=== PATIENT | male | born 1960 | race Caucasian/White ===

== ENCOUNTER 2023-05-31 09:00 | Emergency (ER) | payer SELFPAY ==
[2023-05-31 09:04] VITALS: BP 169/109; PULSE 96; RESP 20; TEMP 36.6; O2SAT 97; BMI 23.6
[2023-05-31] MEDS: FLUORESCEIN SODIUM 1 MG STRIP OP (09:30)
[2023-05-31] MEDS: TETRACAINE HCL 0.5% OP SOL 80 DROP/4 ML BOTTLE OP (09:30)
--- NOTE | 2023-05-31 09:42 | ED_ITS ---
HPI - Eye Problem General Chief complaint: Eye Problems Stated complaint: FOREIGN BODY IN EYE Time Seen by Provider: 05/31/23 09:42 Source: patient Mode of arrival: walk-in History of Present Illness HPI Narrative: Kacie hodge complaint of possible foreign body in his left eye. He said he was working on some home project yesterday using a tile cutter saw. He was cutting both wood and metal. He was wearing safety glasses. He did not have a foreign body sensation or pain or discomfort while he is doing cutting. Later when he was walking away from the project he rubbed his left eye with shirtsleeve and he thinks that's when he might got something in his eye. It was uncomfortable with a foreign body sensation last night. He does not wear contact lenses or corrective lenses. He has no other complaints. Related Data Home Medications Medication Instructions Recorded Confirmed No Known Home Medications 05/31/23 05/31/23 Allergies Allergy/AdvReac Type Severity Reaction Status Date / Time No Known Drug Allergies Allergy Verified 05/31/23 09:06 Exam Narrative Exam Narrative: awake alert here he has done some irritation of his left eye is watering. Visual acuities will be checked subsequent to anesthetizing the eye. His right eye appe ars normal. The left eye does have some injection of conjunctiva in his has clear watering. After instillation of tetracaine drops he had complete resolution of his discomfort. We were then able to double everted the lids and examined the upper cul-de-sac and lower cul-de-sac as well as the medial and lateral borders and there was no apparent foreign body. Fluorescein staining was then done and under cobalt blue slit lamp examination there is a small area at the 11 o'clock position consistent with stain uptake and possible minor abrasion. There is no other foreign bodies rust rings or pieces of metal noted. Constitutional Vital Signs, click to edit/add: Last Vital Signs Temp 97.9 F 05/31/23 09:04 Pulse 96 H 05/31/23 09:04 Resp 20 05/31/23 09:04 BP 169/109 H 05/31/23 09:04 Pulse Ox 97 05/31/23 09:04 O2 Del Method Room Air 05/31/23 09:04 Course Vital Signs Vital signs: Vital Signs Temperature 97.9 F 05/31/23 09:04 Pulse Rate 96 H 05/31/23 09:04 Respiratory Rate 20 05/31/23 09:04 Blood Pressure 169/109 H 05/31/23 09:04 Pulse Oximetry 97 05/31/23 09:04 Oxygen Delivery Method Room Air 05/31/23 09:04 Temperature 97.9 F 05/31/23 09:04 Pulse Rate 96 H 05/31/23 09:04 Respiratory Rate 20 05/31/23 09:04 Blood Pressure 169/109 H 05/31/23 09:04 Pulse Oximetry 97 05/31/23 09:04 Oxygen Delivery Method Room Air 05/31/23 09:04 MDM - Eye Problem MDM Narrative Medical decision making narrative: patient has a minor abrasion on the left eye. We'll place him on Toradol and Garamycin drops. To be referred to the architecture drafter should he have any problems next forty-eight hours Discharge Plan Discharge Chief Complaint: Eye Problems Clinical Impression: Corneal abrasion Patient Disposition: Home, Self-Care Time of Disposition Decision: 09:44 Prescriptions / Home Meds: No Action No Known Home Medications Additional Instructions: follow-up with her local architecture drafter if you've any problems. Only use the eyedrops for twenty-four hours. Stand Alone Forms: Portal Instructions Referrals: Physician,Non-Staff, MD [Primary Care Provider] - 1 week
== END 2023-05-31 10:44 | disposition home or self-care (01) ==
PROVIDERS: Emergency Provider Emergency Medicine Emergency Medical Services
DX: S05.02XA Injury of conjunctiva and corneal abrasion without foreign body, left eye, initial encounter (principal); X58.XXXA Exposure to other specified factors, initial encounter
CPT/HCPCS: 99283